=== PATIENT | female | born 1950 | race Caucasian/White ===

== ENCOUNTER 2018-04-21 09:17 | Emergency (ER) | payer MEDICARE, BC ==
[~2018-04-21] VITALS: Ht 157.5 cm; Wt 108.0 kg
[2018-04-21] MEDS ORDERED: ATENOLOL50 MG PO (09:36)
[2018-04-21] MEDS ORDERED: LISINOPRIL20 MG PO (09:36)
[2018-04-21] MEDS ORDERED: PAXIL30 MG PO (09:37)
[2018-04-21] MEDS ORDERED: OMEPRAZOLE10 MG PO (09:38)
[2018-04-21] MEDS ORDERED: FENOFIBRATE145 MG PO (09:38)
[2018-04-21] MEDS ORDERED: CRESTOR20 MG PO (09:38)
[2018-04-21] MEDS ORDERED: HYDROCHLOROT25 MG PO (09:38)
[2018-04-21] MEDS ORDERED: METFORMIN500 MG PO (09:39)
[2018-04-21] MEDS ORDERED: L-THYROXINE XX (09:39)
[2018-04-21] MEDS ORDERED: NOVOLOG PE100 UNIT/M SC (09:41)
[2018-04-21] MEDS ORDERED: NOVOLOG FL100 UNIT/M SC (09:41)
[2018-04-21] MEDS ORDERED: TRULICITY1.5 MG/0.5 (09:42)
[2018-04-21] MEDS ORDERED: ASPIRIN 8181 MG PO (09:43)
[2018-04-21] MEDS ORDERED: TOUJEO SOL300 UNIT/M SC (09:43)
[2018-04-21 10:12] LABS: HEMATOCRIT 41.1 % (37.0-47.0); HEMOGLOBIN 13.3 g/dl (12.0-16.0); IMMATURE GRANULOCYTES 0.3 % (0.0-5.0); MEAN CELL VOLUME 89.7 fL CALC (80.0-100.0); MEAN CORPUSCULAR HGB CONC 32.4 g/L CALC (32.0-36.0); NEUT# 6.03 thou/uL (2.00-7.15); RED BLOOD COUNT 4.58 mill/uL (4.20-5.60); RED CELL DISTRI WIDTH 13.2 % (11.5-15.5)
[2018-04-21 10:35] LABS: ALBUMIN 4.5 g/dL (3.2-5.0); ALKALINE PHOSPHATASE 66 u/l (38-126); ANION GAP 15 (6-22 (CALC)); BILIRUBIN, TOTAL 0.5 mg/dL (0.0-1.4); BUN 20 mg/dL (8-23); BUN/CREATININE RATIO 18 (12-20 (CALC)); CARBON DIOXIDE 27 mmol/l (22-30); CHLORIDE 101 mmol/l (95-108); CREATININE 1.1 mg/dL (0.5-1.0); GFR 50 ML/MIN (>=60 (CALC)); GFR FOR AFR.AMER. 60 ML/MIN (>=60 (CALC)); LIPASE 238 u/l (23-300); POTASSIUM 4.3 mmol/l (3.5-5.1); SGOT/AST 90 u/l (9-36); SODIUM 139 mmol/l (137-146); TOTAL PROTEIN 7.6 g/dL (6.3-8.2)
[2018-04-21] MEDS ORDERED: DELTASONE20 MG PO ×2 (12:24→12:31)
[2018-04-21] MEDS ORDERED: TORADOL PO (12:24)
[2018-04-21 12:35] VITALS: BP 171/77
== END 2018-04-21 12:37 | disposition home or self-care (01) ==
LOC: ED 09:17
PROVIDERS: Emergency Medicine
DX: R07.89 Other chest pain (principal); I10 Essential (primary) hypertension; E11.9 Type 2 diabetes mellitus without complications; E03.9 Hypothyroidism, unspecified; R06.02 Shortness of breath
CPT/HCPCS: Q9967

== ENCOUNTER 2019-01-20 11:53 | Emergency (ER) | payer MEDICARE, BC ==
[~2019-01-20] VITALS: Ht 157.5 cm; Wt 109.1 kg
[~2019-01-20 11:53] MED LIST: ASPIRIN 8181 MG PO; ATENOLOL50 MG PO; CRESTOR20 MG PO; DELTASONE20 MG PO; FENOFIBRATE145 MG PO; HYDROCHLOROT25 MG PO; L-THYROXINE XX; LISINOPRIL20 MG PO; METFORMIN500 MG PO; NOVOLOG FL100 UNIT/M SC; NOVOLOG PE100 UNIT/M SC; OMEPRAZOLE10 MG PO; PAXIL30 MG PO; TORADOL PO; TOUJEO SOL300 UNIT/M SC; TRULICITY1.5 MG/0.5
[2019-01-20] MEDS ORDERED: CYCLOBENZAPR5 MG PO ×2 (12:10→14:08)
[2019-01-20] MEDS ORDERED: VOLTAREN1%GEL TOP ×2 (12:11→14:08)
[2019-01-20 12:31] VITALS: BP 174/74
== END 2019-01-20 12:41 | disposition home or self-care (01) ==
LOC: ED 11:53
DX: M54.32 Sciatica, left side (principal); M54.31 Sciatica, right side; I10 Essential (primary) hypertension; E11.9 Type 2 diabetes mellitus without complications; E03.9 Hypothyroidism, unspecified; Z79.4 Long term (current) use of insulin

== ENCOUNTER 2019-06-28 | Observation (INO) | payer MEDICARE, BC ==
[~2019-06-28] MED LIST changes: +CYCLOBENZAPR5 MG PO; +VOLTAREN1%GEL TOP
--- NOTE | 2019-06-28 11:39 | NUR ---
PT TO ROOM FOR EXAM
[2019-06-28 12:15] LABS: IMMATURE GRANULOCYTES 0.9 % (0.0-5.0); MEAN CELL VOLUME 90.4 fL CALC (80.0-100.0); MEAN CORPUSCULAR HGB CONC 30.9 g/dL CAL (32.0-36.0); NEUT# 5.12 thou/uL (2.00-7.15); RED BLOOD COUNT 3.22 mill/uL (4.20-5.60); RED CELL DISTRI WIDTH 14.2 % (11.5-15.5)
[2019-06-28 12:23] LABS: HEMATOCRIT 29.1 % (37.0-47.0)
[2019-06-28 12:37] LABS: BILIRUBIN, TOTAL 0.4 mg/dL (0.0-1.4); CREATININE 1.9 mg/dL (0.5-1.0); POTASSIUM 4.5 mmol/l (3.5-5.1); TOTAL PROTEIN 6.6 g/dL (6.3-8.2)
--- NOTE | 2019-06-28 12:45 | NUR ---
PT HUMAN RESOURCES MGR AMOR AND REPORTS SHE FEELS THAT HER SUGAR IS LOW. ACCUCHECK 50 AT THIS TIME. NOTIFIED AND 8 OZ OF ORANGE JUICE PROVIDED WITH SUGAR PACKETS.
[2019-06-28 12:48] LABS: ALBUMIN 3.3 g/dL (3.2-5.0)
--- NOTE | 2019-06-28 13:00 | NUR ---
REPEAT ACCUCHECK 54. D5 INITIATED.
--- NOTE | 2019-06-28 13:32 | NUR ---
SWABBED FOR VIRUS. PT STATES FEELING MUCH BETTER, AUDIBLE WHEEZING HEARD.
--- NOTE | 2019-06-28 13:53 | NUR ---
SBAR PRINTED TO FLOOR
--- NOTE | 2019-06-28 14:33 | NUR ---
WAITING FOR PT ORDERS FROM DOCTOR. APPROX 75% OF MEAL EATEN.
--- NOTE | 2019-06-28 14:40 | NUR ---
ACCUCHECK 130
--- NOTE | 2019-06-28 15:15 | NUR ---
Admission Note Report Given to: sbar printed to floor Transported by: x Wheelchair Stretcher Transported with: x Nurse Transporter x Patent IV O2 x Tunnel Heading Supervisor Location: ICU x [facility]
--- NOTE | 2019-06-28 15:15 | NUR ---
PT ARRIVED FROM ER VIA WC WITH STAFF. IV SITE IS FREE FROM REDNESS OR EDEMA. TELE MONITOR IN PLACE.
[2019-06-28 15:30] VITALS: BP 189/92
--- NOTE | 2019-06-28 15:30 | NUR ---
PT TAKEN TO FLOOR PER W/C
--- NOTE | 2019-06-28 15:45 | NUR ---
ASSESSMENT IS COMPLETED: IV SITE IS FREE FROM REDNESS OR EDEMA. HR IS REG,PULSES ARE STRONG X4,ABD IS SOFT WITH ACTIVE BS. BREATH SOUNDS ARE CLEAR,BILATERALLY. OCCASIONAL WHEEZING NOTED. TELE MONITOR IN PLACE. PT WAS DISCHARGED FROM "[facility] LAST WEEK AND WAS SWABBED". CONTINUE TO OBSERVE AND MONITOR. PT ALSO HAS "'[facility] FOLLOWIUNG HER".
--- NOTE | 2019-06-28 17:36 | NUR ---
PT HAS STRESS INCONTINENCE CONTINUE TO OBSERVE AND MONITOR. GAVE HER AN EXTESION ON HER O2 TUBING.
--- NOTE | 2019-06-28 18:16 | NUR ---
PT BECAME SOB ON EXERTION. AFTER SUPPER WAS ASSISTED TO BSC. COULD HEAR AUDIBLE WHEEZING NOTED. ASSISTED BACK TO BED. AND PT STATES" IT IS HURTING MY LUNGS". GAVE THE INHALER TO PT . INSTRUCTED ABLE TO USE EVERY 4 HRS NEEDED , AND INQUIRED IF SHE FELT THE O2. CONTINUE TO OSBERVE AND MONITOR.
--- NOTE | 2019-06-28 18:30 | NUR ---
OLAYINKA COATS RN GAVE APPRESOLINE AT 1829 FOR ELEVATED BP OF 188/92. PT HAVING SOB AND WHEEZING ON EXERTION. WHILE LAYING IN BED CONTINUED TO HAVE SOB, AND LABORED BREATHING. AT 1835 CALLED RESPIRATORY AND INQUIRED ABOUT A NON REBREATHER. WILL RECHECK O2 SATS WERE 89-93%.
--- NOTE | 2019-06-28 18:39 | NUR ---
ER CALLED RE: ASYSTOLE. AND AT 1840 A RAPID RESPONSE AND CODE BLUE WERE CALLED TO THE ROOM. COMPRESSIONS WERE ALREADY STARTED AT 1840 BY Darell ELLIS. THEN Aneudy CHAUDHARY RN IN THE ROOM TO ASSIST WITH COMPRESSIONS AND THE CODE TEAM RIGHT BEHIND.
--- NOTE | 2019-06-28 18:45 | NUR ---
1ST EPI GIVEN BY VERNA KELLEY. COMPRESSIONS BEING CONTINUED 1845 PULSE CHECK "NO PULSE BY DR DAMICO" RESUME COMPRESSIONS. AT 1851 EPI ADMINISTERED AGAIN BY Stefan CHAUDHARY RN. AT 1848 ACCU CHECK WAS CHECKED IT WAS 179. CONTINUE WITH NO PULSE. AT 1849 CALCIUM CHLORIDE ADMINISTERED. PULSE CHECK AT 1851 NO PULSE.
--- NOTE | 2019-06-28 18:55 | NUR ---
CALLED DR PENA TO INFORM OF WHAT WAS GOING ON WITH THE PT. AND THEN TURNED THE PHONE TO VERNA KELLEY . DR PENA TOLD DR DAMICO TO CONTINUE WITH WHAT NEEDED TO BE DONE. AT 1856 PT'S CALLED AND WAS TALKING WITH CONTRERAS KELLEY AND THEN DR DAMICO. DR. DAMICO WAS INFORMING THE THAT "SHE CODED AND THEY HAVE BEEN WORKING ON HER FOR 28 MINUTES".
--- NOTE | 2019-06-28 18:56 | NUR ---
BICARB WAS ADMINISTERED , ALSO AN I/O IN THE R THIGH WAS PLACED.AT 1856 PULSE WAS RECHECKED "NO PULSE". AT 1857 LMA (LARYN[facility]) WAS PLACED CONTINUE WITH RESPIRATIONS ALSO GAVE ANOTHER DOSE OF EPI. AT 1899 PULSE WAS RECHECKED AND NO PULSE AT 1904 TIME OF WAS CALLED BY DR DAMICO.
--- NOTE | 2019-06-28 19:22 | NUR ---
CALLED THE FERTILIZING MACHINE OPERATOR OFFICE [employer] I[employer] PARKING CASHIER . AT 1935 RECEIVED A CALL FROM THE MEDICAL EXAMINERS OFFICE (LEVI LIU) [facility] RESULTS. BEFORE CONTINUING ANY FURTHER BURIAL.
--- NOTE | 2019-06-28 19:23 | NUR ---
1844 PATIENT ON ASSURANCE SENIOR MANAGER INSURANCE AND NOTICED PULSE GO FROM 60 TO ASYSTOLE CODE GIULIA CALLED FROM ED. ARRIVED AND CPR IN PROGRESS. PROPER PPE APPLIED BEFORE ENTERING ROOM ACLS INITIATED AND MD AT BEDSIDE PATIENT REMAINED IN ASYSTOLE WITH NO SPONTANEOUS RETURN OF RESPIRATIONS AND DR DAMICO TERMINATED THE CODE AT 1905 SEE CODE SHEET
--- NOTE | 2019-06-28 19:27 | NUR ---
CALLED [employer] SPOKE WITH VICENTE. # FROM [employer] CODE: [phone]. AT 2018 RECEIVED A CALL FROM [facility]ION NOT SUITABLE FOR DONATIONS.
--- NOTE | 2019-06-28 20:18 | NUR ---
RECEIVED A CALL FROM MURALI AGRAWAL [employer] COORDINATOR PT IS NOT SUITABLE FOR DONATION.
--- NOTE | 2019-06-28 20:23 | NUR ---
PT'S CALLED AND INFORMED THIS CLUB CAR ATTENDANT : WAITING FOR A RETURN CALL FROM "[facility]" WAS TOLD TO HOLD THE BODY UNTIL THEY CALL BACK. INFORMED THE TOPOLOGY TEACHER.
--- NOTE | 2019-06-28 20:32 | NUR ---
SPOUSE CALLED BACK AND STATED" [facility] , DOESN'T HAVE A DONATION PLACE IN [place] TO TAKE CARE OF THIS , WE CAN RELEASE THE BODY TO [facility]". THEN HE INQUIRED IF THEY WILL CALL HIM ABOUT THE PT'S REQUEST.
--- NOTE | 2019-06-28 20:50 | NUR ---
CALLED [facility] AND [facility]. SPOKE WITH BENY. WILL INFORM THE DIRECTOR. PT CONTINUES TO BE IN 289.
--- NOTE | 2019-06-28 22:34 | NUR ---
PT PICKED OFF BY [facility] STAFF
== END 2019-06-28 22:34 | disposition expired ==
PROVIDERS: Family Medicine; ADMIT Internal Medicine
PROC: 5A12012 Performance of Cardiac Output, Single, Manual (ICD-10-PCS; principal; 2019-06-28)
DX: U07.1 COVID-19 (principal); J12.89 Other viral pneumonia; E11.9 Type 2 diabetes mellitus without complications; I10 Essential (primary) hypertension; E03.9 Hypothyroidism, unspecified; E78.5 Hyperlipidemia, unspecified; Z79.4 Long term (current) use of insulin
CPT/HCPCS: G0378; J0692